=== PATIENT | male | born 1950 | race Caucasian/White ===

== ENCOUNTER → 2016-12-05 | Outpatient (CLI) | payer OTHER ==
[~2016-12-05] MED LIST: ASPI81TA85 PO; LISI-538 PO
[2016-12-05 13:13] LABS: BASO # 0.1 K/mm3 (0.0-0.2); BASO % 0.9 % (0.0-1.0); EOS # 0.5 K/mm3 (0.0-0.50); EOS % 6.3 % (0.0-3.0); LARGE UNSTAINED CELL # 0.2 K/mm3 (0.0-0.4); LARGE UNSTAINED CELL % 2.9 % (0.0-4.0); LYMPH # 1.4 K/mm3 (1.5-4.5); LYMPH % 18.4 % (24.0-44.0); MEAN CORPUSCULAR HGB CONC 32.2 g/dl (32.0-36.5); MEAN CORPUSCULAR VOLUME 77.7 fl (80.0-96.0); MONO # 0.4 K/mm3 (0.0-0.8); NEUTROPHILS # 5.1 K/mm3 (1.8-7.7); NEUTROPHILS % 66.6 % (36.0-66.0); PLATELET COUNT, AUTOMATED 365 k/mm3 (150-450); RED CELL DISTRIBUTION WIDTH 13.2 % (11.5-14.5); WHITE BLOOD COUNT 7.6 K/mm3 (4.0-10.0)
[2016-12-05 13:32] LABS: ANION GAP 8 MEQ/L (8-16); BLOOD UREA NITROGEN 18 MG/DL (7-18); CALCIUM LEVEL 9.7 MG/DL (8.8-10.2); CARBON DIOXIDE LEVEL 29 MEQ/L (21-32); CHLORIDE LEVEL 105 MEQ/L (98-107); CREATININE FOR GFR 0.97 MG/DL (0.70-1.30); GLOMERULAR FILTRATION RATE > 60.0 (>49); GLUCOSE, FASTING 111 MG/DL (80-110); POTASSIUM SERUM 4.8 MEQ/L (3.5-5.1); SODIUM LEVEL 142 MEQ/L (136-145)
[2016-12-06 14:15] LABS: PSA TOTAL 3.2 ng/mL (0.0-4.0)
== END ==
LOC: M SMT 08:58
PROVIDERS: ATTEND Physician Assistant
DX: R35.1 Nocturia (principal); R73.01 Impaired fasting glucose; I10 Essential (primary) hypertension

== ENCOUNTER → 2017-01-19 | Outpatient (CLI) | payer OTHER ==
[~2017-01-19] VITALS: Ht 172.7 cm; Wt 83.9 kg
[~2017-01-19] MED LIST changes: +PROPOFOL 200 MG/20 ML VIAL As Ordered ONE
--- NOTE | 2017-01-19 12:15 | ROOR ---
Patient Name: Stone Brennan Procedure Date: 01/19/2017 11:53 AM Date of : 1950 Age: 66 Room: [facility] Gender: Male Note Status: Finalized Procedure: Colonoscopy Indications: Screening for colorectal malignant neoplasm Providers: Lake Neal Jr, MD Referring MD: Brie CAUSEY DO Requesting Provider: Medicines: Propofol per Anesthesia Complications: No immediate complications. Procedure: Pre-Anesthesia Assessment: - Prior to the procedure, a History and Physical was performed, and patient medications and allergies were reviewed. The patient is competent. The risks and benefits of the procedure and the sedation options and risks were discussed with the patient. All questions were answered and informed consent was obtained. Patient identification and proposed procedure were verified by the physician and the nurse in the pre-procedure area and in the procedure room. Mental Status Examination: alert and oriented. Airway Examination: normal oropharyngeal airway and neck mobility. Respiratory Examination: clear to auscultation. CV Examination: normal. ASA Grade Assessment: II - A patient with mild systemic disease. After reviewing the risks and benefits, the patient was deemed in satisfactory condition to undergo the procedure. The anesthesia plan was to use moderate sedation / analgesia (conscious sedation). Immediately prior to administration of medications, the patient was re-assessed for adequacy to receive sedatives. The heart rate, respiratory rate, oxygen saturations, blood pressure, adequacy of pulmonary ventilation, and response to care were monitored throughout the procedure. The physical status of the patient was re-assessed after the procedure. The Colonoscope was introduced through the anus and advanced to the cecum, identified by appendiceal orifice and ileocecal valve. The colonoscopy was performed without difficulty. The patient tolerated the procedure well. The quality of the bowel preparation was adequate and good. Findings: The perianal exam findings include non-thrombosed internal hemorrhoids, internal hemorrhoids that prolapse with straining, but spontaneously regress to the resting position (Grade II) and internal hemorrhoids that prolapse with straining, but require manual replacement into the anal canal (Grade III). A few small and large-mouthed diverticula were found in the sigmoid colon. The rectum, recto-sigmoid colon, descending colon, transverse colon, ascending colon, cecum and ileocecal valve appeared normal. Impression: - Non-thrombosed internal hemorrhoids, internal hemorrhoids that prolapse with straining, but spontaneously regress to the resting position (Grade II) and internal hemorrhoids that prolapse with straining, but require manual replacement into the anal canal (Grade III) found on perianal exam. - Diverticulosis in the sigmoid colon. - The rectum, recto-sigmoid colon, descending colon, transverse colon, ascending colon, cecum and ileocecal valve are normal. - No specimens collected. Recommendation: - Discharge patient to home (ambulatory). - Repeat colonoscopy in 10 years for screening purposes. Lake Neal MD Lake Neal Jr, MD 01/19/2017 12:15:19 PM This report has been signed electronically. Number of Addenda: 0 Note Initiated On: 01/19/2017 11:53 AM Estimated Blood Loss: Estimated blood loss: none.
[2017-01-19 12:41] VITALS: BP 145/79
== END | disposition home or self-care (01) ==
LOC: M OPP 10:33
PROVIDERS: ATTEND Surgery
DX: Z12.11 Encounter for screening for malignant neoplasm of colon (principal); K64.2 Third degree hemorrhoids; K64.1 Second degree hemorrhoids; K57.30 Diverticulosis of large intestine without perforation or abscess without bleeding; I10 Essential (primary) hypertension; R51 Headache; Z79.82 Long term (current) use of aspirin; Z79.899 Other long term (current) drug therapy

== ENCOUNTER → 2018-10-23 | Outpatient (CLI) | payer OTHER ==
[~2018-10-23] MED LIST changes: -PROPOFOL 200 MG/20 ML VIAL As Ordered ONE
--- NOTE | 2018-10-23 11:28 | REP ---
Fifth digit left hand four views: There are no comparisons. There are multiple tiny calcifications adjacent to the distal tuft compatible with multiple small a avulsions. There is soft tissue edema. 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 There is joint space narrowing of the PIP. Suspect an old healed fracture of the fifth digit metacarpal shaft. Electronically Signed by Jos Montero MD 10/23/2018 11:20 A
== END ==
LOC: M SMT 10:04
PROVIDERS: ATTEND Physician Assistant
DX: M19.042 Primary osteoarthritis, left hand (principal)

== ENCOUNTER → 2020-12-18 | Outpatient (CLI) | payer OTHER ==
[~2020-12-18] MED LIST changes: +AMIO200T3 PO; +AMLO1TAB24 PO; -ASPI81TA85 PO; +ASPI81TA86 PO; -LISI-538 PO; +LISI20TA33 PO; +LOSA100T50 PO; +METO1TAB87 PO; +XARE20TA PO
== END ==
LOC: M LABSMTC 11:15
PROVIDERS: ATTEND Anesthesiology
DX: Z01.812 Encounter for preprocedural laboratory examination (principal); Z20.822 Contact with and (suspected) exposure to COVID-19

== ENCOUNTER 2020-12-23 05:59 | Day surgery (SDC) | payer BC, MEDICARE ==
[~2020-12-23] VITALS: Ht 172.7 cm; Wt 81.6 kg
[2020-12-23] MEDS ORDERED: LR 1,000 ML IV ONE (06:00)
[2020-12-23] MEDS ORDERED: propofoL 200 MG/20 ML VIAL As Ordered ONE (06:56)
[2020-12-23] MEDS ORDERED: LIDOCAINE 2% 100MG/5ML SDV (FOR ANES.) As Ordered ONE (06:57)
--- NOTE | 2020-12-23 08:14 | RO ---
OPERATIVE NOTE DATE OF OPERATION: 12/23/2020 PREOPERATIVE DIAGNOSIS: Atrial fibrillation. POSTOPERATIVE DIAGNOSIS: Resumption of sinus rhythm. PROCEDURE: Cardioversion. SURGEON: Wyatt Mandujano MD NAMED ACCOUNT EXECUTIVE: None ANESTHESIOLOGY: Jose Brunner CRNA BRIEF HISTORY: Mr. Brennan is a 70-year-old man who has had problems with atrial fibrillation for several years. He initially was treated with Amiodarone with resumption of sinus rhythm but after the medication was slowly withdrawn he relapsed. Unfortunately class 1C antiarrhythmics were not successful in restoring sinus rhythm and consequently he was restarted on Amiodarone and brought for elective cardioversion. He has been chronically anticoagulated with Xarelto without interruptions. DESCRIPTION OF PROCEDURE: The procedure was performed in the recovery room. The patient presented in fasting condition. Prior to the procedure I talked to him again about the nature, risks and benefits and we reviewed the consent form. After appropriate monitors were applied and time out was taken, the patient was cardioverted with 200 joules of energy applied in synchronized fashion. Single shock led to judaism of sinus mechanism. There was no post-conversion pause. The patient tolerated the procedure well. He will be discharged home on his chronic medications. Tentative follow up will be next week. SHEEBA
[2020-12-23 08:34] VITALS: BP 148/78
--- NOTE | 2020-12-23 23:40 | ECGEPIP ---
[facility] Test Date: 2020-12-23 Pat Name: KEE HENDERSON Department: Room: - Gender: Male Day Care Supervisor: MARILEE : 1950 Requested By: Wyatt Mandujano Order Number: [id number] Reading MD: Castro Cobb Measurements Intervals [place] Rate: 78 P: [place]: QRS: -11 QRSD: 92 T: -4 QT: 412 QTc: 469 Interpretive Statements Atrial fibrillation, PVC or QRS aberrancy 1, Nonspecific T wave abnormality. No prior ECG available for comparison at the time of interpretation. Electronically Signed on 12-23-2020 23:40:28 EDT by Castro Cobb
--- NOTE | 2020-12-23 23:42 | ECGEPIP ---
[facility] Test Date: 2020-12-23 Pat Name: KEE HENDERSON Department: Room: - Gender: Male Literature Professor: MARILEE : 1950 Requested By: Wyatt Mandujano Order Number: [id number] Reading MD: Castro Cobb Measurements Intervals [place] Rate: 59 P: 76 CT: 260 QRS: -6 QRSD: 96 T: 27 QT: 482 QTc: 477 Interpretive Statements Sinus bradycardia with 1st degree AV block with premature atrial complex 1. Cannot rule out Inferior infarct , age undetermined Rhythm change compared with 12/23/2020 at 6:42 AM. Electronically Signed on 12-23-2020 23:42:09 EDT by Castro Cobb
== END 2020-12-23 08:35 | disposition home or self-care (01) ==
LOC: M SDC 05:59
PROVIDERS: ATTEND Internal Medicine Cardiovascular Disease
DX: I48.91 Unspecified atrial fibrillation (principal); K21.9 Gastro-esophageal reflux disease without esophagitis; Z79.01 Long term (current) use of anticoagulants; Z79.899 Other long term (current) drug therapy

== ENCOUNTER 2024-05-31 09:43 | Outpatient (RCR) | payer MEDICARE ==
[~2024-05-31 09:43] MED LIST changes: -AMIO200T3 PO; +AMIO200T49 PO; +LOSA100T46 PO; -LOSA100T50 PO
== END 2024-06-07 ==
LOC: M ST 09:43
PROVIDERS: ATTEND Physician Assistant
DX: I69.320 Aphasia following cerebral infarction (principal)

== ENCOUNTER 2024-07-03 10:38 | Outpatient (RCR) | payer MEDICARE | END 2024-07-05 | LOC: M ST 10:38 | PROVIDERS: ATTEND Physician Assistant | DX: I69.320 Aphasia following cerebral infarction (principal) ==

== ENCOUNTER 2024-07-15 09:18 | Outpatient (RCR) | payer MEDICARE | END 2024-08-05 | LOC: M ST 09:18 | PROVIDERS: ATTEND Physician Assistant | DX: I69.320 Aphasia following cerebral infarction (principal) ==

== ENCOUNTER → 2025-01-14 | Outpatient (CLI) | payer MEDICARE ==
[~2025-01-14] MED LIST changes: -AMIO200T49 PO; +AMIO200T54 PO
== END ==
LOC: M WUC 09:50
PROVIDERS: ATTEND Family Medicine
DX: J20.9 Acute bronchitis, unspecified (principal)